=== PATIENT | female | born 1990 | race Caucasian/White ===

== ENCOUNTER 2016-09-26 12:50 | Emergency (ER) | payer OTHER ==
[~2016-09-26] VITALS: Ht 154.9 cm; Wt 65.0 kg
[2016-09-26 12:54] VITALS: BP 117/77; PULSE 85; RESP 14; TEMP 97.8; O2SAT 100
[2016-09-26] MEDS ORDERED: BIRTH CONTROL PILL (13:01)
[2016-09-26] MEDS ORDERED: ONDANSETRON HCL 4 MG/2 ML VIAL IM ONE (13:15)
[2016-09-26] MEDS ORDERED: PROMETHAZINE INJ 25 MG/ML VIAL IM ONE (13:15)
--- NOTE | 2016-09-26 13:17 | PD ---
HPI Chief Complaint: Dizziness Time Seen by Provider: 13:02 Travel History International Travel<30 days: No Contact w/Intl Traveler<30days: No Traveled to known affect area: No History of Present Illness HPI The patient was seen and examined in the presence of the nurse. This patient complains of a room spinning dizziness. It's worse when she changes position. Started at 4 AM this morning. Duration is 9 hours. Symptoms severity is moderate. No headache or head injury or documented fever. She developed nausea and vomiting with the dizziness occurs. No abdominal pain or diarrhea. PFSH Past Medical History Medical History: Denies Significant Hx Influenza Vaccination: No ?: Not LMP: 3 WEEKS AGO Past Surgical History Surgical History: No Previous Surgery Social History Alcohol Use: Yes (COUPLE TIMES A WEEK) Tobacco Use: No Substance Use: No Allergies-Medications (Allergen,Severity, Reaction): Coded Allergies: No Known Allergies (Verified , 09/26/16) Reported Meds & Prescriptions Reported Meds & Active Scripts Active Reported [ Control Pill] Review of Systems General / Constitutional: No: Fever Eyes: No: Visual changes HENT: Positive: Vertigo, No: Headaches Cardiovascular: No: Chest Pain or Discomfort Respiratory: No: Shortness of Breath Gastrointestinal: Positive: Nausea, Vomiting, No: Abdominal Pain Genitourinary: No: Dysuria Musculoskeletal: No: Pain Skin: No Rash Neurologic: No: Weakness Psychiatric: No: Depression Endocrine: No: Polydipsia Hematologic/Lymphatic: No: Easy Bruising Physical Exam Narrative GENERAL: Well-nourished, well-developed patient with nausea and vertigo . SKIN: Focused skin assessment reveals no rash and nodules. Skin is Warm and dry. HEAD: Atraumatic. Normocephalic. EYES: Pupils equal and round. No scleral icterus. No injection or drainage. ENT: No nasal bleeding or discharge. Mucous membranes pink and moist. NECK: Trachea midline. No JVD. No meningeal signs CARDIOVASCULAR: Regular rate and rhythm. No murmur appreciated. RESPIRATORY: No accessory muscle use. Clear to auscultation. Breath sounds equal bilaterally. GASTROINTESTINAL: Abdomen soft, non-tender, nondistended. Hepatic and splenic margins not palpable. MUSCULOSKELETAL: No obvious deformities. No clubbing. No cyanosis. No edema. NEUROLOGICAL: Awake and alert. No obvious cranial nerve deficits. Motor grossly within normal limits. Normal speech. PSYCHIATRIC: Appropriate mood and affect; insight and judgment normal. Data Data Last Documented VS Vital Signs Date Time Temp Pulse Resp B/P Pulse Ox O2 Delivery O2 Flow Rate FiO2 09/26/16 12:54 97.8 85 14 117/77 100 Room Air Orders Ondansetron Inj (Zofran Inj) (09/26/16 13:15) Promethazine Inj (Phenergan Inj) (09/26/16 13:15) MDM Medical Decision Making Medical Screen Exam Complete: Yes Emergency Medical Condition: Yes Medical Record Reviewed: Yes Differential Diagnosis Positional vertigo, labyrinthitis, gastroenteritis Narrative Course I have reviewed the patient's electronic medical record. Presentation is consistent with positional vertigo. No objective exam findings and normal vitals and normal neurologic exam I gave her injection of Phenergan and Zofran. She will use meclizine as needed and I wonder about potential sedation I don't see any indication for imaging or other studies at this point. Diagnosis Primary Impression: Positional vertigo Qualified Code: H81.10 - Positional vertigo, unspecified laterality Additional Instructions: The patient was advised to follow up with their physician and return if they worsen. Change position slowly Med/Other Pt SpecificInfo: Prescription(s) given Scripts Ondansetron (Zofran)4 Mg Tab4 Mg PO Q6HR PRN (NAUSEA OR VOMITING) #15 TAB Ref 0 Prov:Dionisio Mckeon MD 09/26/16 Disposition: 01 DISCHARGE HOME Condition: Stable Dionisio Mckeon MD Sep 26, 2016 13:17
[2016-09-26] MEDS ORDERED: ZOFR4TAB PO (13:59)
== END 2016-09-26 14:15 | disposition home or self-care (01) ==
LOC: PHED 12:50
DX: H81.10 Benign paroxysmal vertigo, unspecified ear (principal)
CPT/HCPCS: 96372; 99284; J2405; J2550